=== PATIENT | female | born 1950 | race Caucasian/White ===

== ENCOUNTER 2021-02-24 19:23 | Inpatient (IN) ==
[2021-02-24] MEDS ORDERED: DEXTROSE 50% 25 GM/50 ML SYRINGE IV ONE (20:18)
[2021-02-24] MEDS ORDERED: ALBUTEROL/IPRATROPIUM 3 ML NEB RESP TX STA (20:30)
[2021-02-24] MEDS ORDERED: NALOXONE 0.4 MG/ML VIAL IV STA (20:39)
[2021-02-24] MEDS ORDERED: cefTRIAXone 1,000 MG in SODIUM CHLORIDE 0.9% 100 ML IV STA (20:39)
[2021-02-24 20:56] LABS: ABG Base Excess -20.1 MMOL/L (-2.5-2.5); ABG HCO3 9.8 MMOL/L (20-26); ABG Oxygen Saturation 97.2 % (95-100); ABG PCO2 26.3 MM HG (35-48)
[2021-02-24 21:00] LABS: ABG PH 7.114 (7.35-7.45)
[2021-02-24] MEDS ORDERED: SODIUM BICARBONATE 50 MEQ/50 ML VIAL IV STA (21:03)
[2021-02-24] MEDS ORDERED: SODIUM BICARBONATE 50 MEQ/50 ML VIAL IV ONE (21:04)
[2021-02-24] MEDS ORDERED: NOREPINEPHRINE 4 MG/4 ML VIAL IV ONE (21:11)
[2021-02-24] MEDS ORDERED: PIPERACILLIN/TAZOBACTAM 3,375 MG in SODIUM CHLORIDE 0.9% 100 ML IV STA (21:12)
[2021-02-24] MEDS: NOREPINEPHRINE 8 MG in SODIUM CHLORIDE 0.9% 242 ML IV PRN (21:20)
[2021-02-24 21:25] LABS: Basophils % 0.1 % (0.0-0.8); Hematocrit 37.2 VOL% (35.7-47.0)
[2021-02-24 21:47] LABS: Immature Granulocytes % 1.2 %; Immature Granulocytes Absolute 0.26 #; Lactic Acid 12.9 MMOL/L (0.4-2.0); Lymphocytes # 0.9 10*3/uL (1.4-4.0); Lymphocytes % 4.3 % (21.3-54.2); Mean Corpuscular HGB Conc 28.8 GM/DL (32-36); Mean Corpuscular Volume 104.2 FL (87-102); Mean Platelet Volume 11.1 FL (9.6-12.0); Monocytes % 9.6 % (1.7-12.7); NRBC # 0.07 10*3/uL; Neutrophils % 84.8 % (38.7-73.9); Platelet Count 254 T/CUMM (130-400); Red Blood Count 3.57 MC/CUMM (3.8-5.5); Red Cell Distribution Width 16.6 % (9.3-17.3); White Blood Count 21.6 T/CUMM (4-12)
[2021-02-24 21:50] LABS: Hemoglobin 10.7 GM/DL (12.0-16.0)
[2021-02-24 21:55] LABS: Band Neutrophils 1 % (0-10); Lymphocytes 5 % (20-55); Metamyelocytes 1 %; Platelet Estimate Adequate; Segmented Neutrophils 82 % (50-85); Total Cells Counted 100
[2021-02-24 22:05] LABS: Alanine Aminotransferase 781 U/L (13-56); Alkaline Phosphatase 159 U/L (45-117); Aspartate Amino Transferase 2705 U/L (0-37); Blood Urea Nitrogen 41 MG/DL (7-18); CKMB % 6.6 %; Calcium 8.8 MG/DL (8.5-10.1); Carbon Dioxide 13 MMOL/L (21-32); Estimated Glom Filtration Rate 20 ML/MIN; Glucose 170 MG/DL (74-106); Osmolality,Calculated 279.4 MOS/KG (273-304); Potassium 5.7 MMOL/L (3.5-5.1); Sodium 133 MMOL/L (136-145); Total Protein 7.6 G/DL (6.4-8.2)
[2021-02-25] MEDS ORDERED: SODIUM CHLORIDE 0.9% 1,000 ML IV STA ×2 (00:01→02:48)
[2021-02-25 00:55] LABS: Bacteria,Urine Occasional /HPF (Few); Bilirubin,Urine Negative (Negative); Blood, Urine Negative (Negative); Glucose,Urine (UA) Negative (Negative); Granular Casts,Urine 1 /LPF (0-1); Hyaline Casts,Urine 59 /LPF (0-3); Ketones,Urine 5 mg/dL (Negative); Mucus,Urine Occasional /LPF (Occasional); Nitrite,Urine Negative (Negative); Protein,Urine 100 MG/DL; RBC,Urine 4 /HPF (0-4); Squamous Epithelial Cell,Urine Few /HPF (0-10); Urine Appearance CLOUDY (Clear); Urine Color Amber (Yellow)
[2021-02-25 01:06] LABS: Barbiturates Screen,Urine Negative (Negative); Benzodiazepines Screen,Urine Negative (Negative); Cannabinoid Screen,Urine Negative (Negative); Opiate Screen,Urine Positive (Negative); Phencyclidine Screen,Urine Negative (Negative)
[2021-02-25] MEDS ORDERED: LACTATED RINGERS 500 ML IV ONE ×2 (02:51→14:41)
[2021-02-25] MEDS ORDERED: MORPHINE 2 MG/1 ML SYRINGE IV PRN (03:03)
[2021-02-25] MEDS ORDERED: ALBUTEROL 2.5 MG/3 ML NEB RESP TX PRN (03:03)
[2021-02-25] MEDS ORDERED: ONDANSETRON 4 MG/2 ML VIAL IV PRN (03:03)
[2021-02-25] MEDS ORDERED: ACETAMINOPHEN 325 MG TABLET PO PRN (03:03)
[2021-02-25] MEDS ORDERED: DEXTROSE 50% 25 GM/50 ML SYRINGE IV ONE (03:04)
[2021-02-25 03:26] LABS: ABG HCO3 9.3 MMOL/L (20-26); ABG Oxygen Saturation 96.5 % (95-100); ABG PCO2 29.1 MM HG (35-48)
[2021-02-25 03:27] LABS: Basophils % 0.1 % (0.0-0.8); Hematocrit 38.2 VOL% (35.7-47.0); Immature Granulocytes % 1.3 %; Immature Granulocytes Absolute 0.35 #; Lymphocytes # 0.9 10*3/uL (1.4-4.0); Lymphocytes % 3.3 % (21.3-54.2); Mean Corpuscular Volume 105.5 FL (87-102); Mean Platelet Volume 10.8 FL (9.6-12.0); Monocytes % 9.2 % (1.7-12.7); NRBC # 0.11 10*3/uL; Neutrophils % 86.1 % (38.7-73.9); Platelet Count 240 T/CUMM (130-400); Red Blood Count 3.62 MC/CUMM (3.8-5.5); Red Cell Distribution Width 16.9 % (9.3-17.3); White Blood Count 26.1 T/CUMM (4-12)
[2021-02-25 03:28] LABS: ABG PH 7.067 (7.35-7.45)
[2021-02-25 03:30] LABS: Hemoglobin 10.7 GM/DL (12.0-16.0)
[2021-02-25] MEDS ORDERED: DEXTROSE 5% NACL 0.45% 1,000 ML IV SCH (03:30)
[2021-02-25 03:39] LABS: INR 3.1; PT Patient Result 31.9 SECS (10.5-12.0)
[2021-02-25 03:49] LABS: Anisocytosis 2+; Burr Cells Few; Lymphocytes 4 % (20-55); Platelet Estimate Adequate; Segmented Neutrophils 89 % (50-85); Total Cells Counted 100
[2021-02-25 03:50] LABS: Elliptocytes Few
[2021-02-25] MEDS ORDERED: SODIUM BICARBONATE 50 MEQ/50 ML VIAL IV STA (03:55)
[2021-02-25] MEDS ORDERED: SODIUM BICARB INJ 100 MEQ in DEXTROSE 5% NACL 0.45% 1,000 ML IV SCH (04:00)
[2021-02-25 04:01] LABS: Alanine Aminotransferase 920 U/L (13-56); Alkaline Phosphatase 161 U/L (45-117); Aspartate Amino Transferase 3299 U/L (0-37); Blood Urea Nitrogen 40 MG/DL (7-18); Calcium 8.8 MG/DL (8.5-10.1); Carbon Dioxide 11 MMOL/L (21-32); Estimated Glom Filtration Rate 19 ML/MIN; Glucose 67 MG/DL (74-106); Osmolality,Calculated 271.5 MOS/KG (273-304); Potassium 5.5 MMOL/L (3.5-5.1); Sodium 132 MMOL/L (136-145); Total Protein 7.9 G/DL (6.4-8.2)
[2021-02-25] MEDS ORDERED: DEXTROSE 50% 25 GM/50 ML VIAL IV STA (04:27)
[2021-02-25] MEDS: NOREPINEPHRINE 8 MG in SODIUM CHLORIDE 0.9% 242 ML IV PRN (04:50)
[2021-02-25 05:04] VITALS: BP 124/78
[2021-02-25] MEDS ORDERED: VANCOMYCIN INJ 1,500 MG in SODIUM CHLORIDE 0.9% 500 ML IV PRN (05:44)
[2021-02-25] MEDS: DEXTROSE 50% 25 GM/50 ML VIAL IV PRN ×2 (05:47→19:43)
[2021-02-25] MEDS ORDERED: VANCOMYCIN INJ 1,000 MG in SODIUM CHLORIDE 0.9% 250 ML IV SCH (06:00)
[2021-02-25] MEDS ORDERED: GLUCAGON 1 MG VIAL IM PRN (06:26)
[2021-02-25] MEDS ORDERED: VANCOMYCIN INJ 1,500 MG in SODIUM CHLORIDE 0.9% 500 ML IV ONE (06:30)
[2021-02-25] MEDS: HEPARIN DRIP 25,000 UNITS/500 ML PREMIX IV SCH ×2 (07:05→22:10)
[2021-02-25] MEDS: HYDROCORTISONE 100 MG VIAL IV SCH ×3 (07:40→19:13)
[2021-02-25 07:57] LABS: ABG HCO3 9.4 MMOL/L (20-26); ABG Oxygen Saturation 96.5 % (95-100); ABG PCO2 31.2 MM HG (35-48); ABG TCO2 10.4 MMOL/L (23-27)
[2021-02-25 08:01] LABS: ABG PH 7.099 (7.35-7.45)
[2021-02-25] MEDS ORDERED: SODIUM BICARBONATE 50 MEQ/50 ML VIAL IV ONE ×2 (08:04→14:35)
[2021-02-25] MEDS: ALBUTEROL 2.5 MG/3 ML NEB RESP TX SCH ×3 (08:06→19:00)
[2021-02-25] MEDS ORDERED: PANTOPRAZOLE 40 MG VIAL IV SCH (09:00)
[2021-02-25] MEDS ORDERED: ENOXAPARIN 30 MG/0.3 ML SYRINGE SUBCUT SCH (09:00)
[2021-02-25] MEDS: NOREPINEPHRINE 16 MG in SODIUM CHLORIDE 0.9% 234 ML IV PRN ×4 (09:01→22:11)
[2021-02-25] MEDS: PIPERACILLIN/TAZOBACTAM 3,375 MG in SODIUM CHLORIDE 0.9% 100 ML IV SCH ×2 (09:37→21:22)
[2021-02-25 13:57] LABS: ABG Base Excess -17.5 MMOL/L (-2.5-2.5); ABG HCO3 11.3 MMOL/L (20-26); ABG Oxygen Saturation 93.2 % (95-100); ABG PCO2 31.7 MM HG (35-48); ABG PO2 86.1 MM HG (80-95); ABG TCO2 10.2 MMOL/L (23-27)
[2021-02-25 14:03] LABS: ABG PH 7.136 (7.35-7.45)
[2021-02-25] MEDS ORDERED: DIGOXIN 0.5 MG/2 ML AMP IV ONE ×2 (14:35→15:50)
[2021-02-25 16:46] LABS: ABG Base Excess -17.6 MMOL/L (-2.5-2.5); ABG HCO3 11.2 MMOL/L (20-26); ABG Oxygen Saturation 96.8 % (95-100); ABG PCO2 33.1 MM HG (35-48); ABG TCO2 10.4 MMOL/L (23-27)
[2021-02-25 16:49] LABS: ABG PH 7.123 (7.35-7.45)
[2021-02-25] MEDS: SODIUM BICARB INJ 150 MEQ in DEXTROSE 5% 1,000 ML IV SCH (16:54)
[2021-02-25] MEDS ORDERED: MIDAZOLAM 2 MG/2 ML VIAL IV ONE (17:02)
[2021-02-25] MEDS ORDERED: ALPRAZolam 0.25 MG TABLET PO PRN (17:03)
[2021-02-25] MEDS ORDERED: ETOMIDATE 20 MG/10 ML VIAL IV ONE ×2 (17:28→17:44)
[2021-02-25] MEDS ORDERED: SUCCINYLCHOLINE 200 MG/10 ML VIAL ONE (17:29)
[2021-02-25] MEDS ORDERED: SUCCINYLCHOLINE 200 MG/10 ML VIAL IV ONE (17:44)
[2021-02-25] MEDS ORDERED: MIDAZOLAM 100 MG in SODIUM CHLORIDE 0.9% 80 ML IV PRN (17:44)
[2021-02-25 18:57] LABS: ABG Base Excess -16.4 MMOL/L (-2.5-2.5); ABG PCO2 37.5 MM HG (35-48); ABG TCO2 11.6 MMOL/L (23-27)
[2021-02-25 19:03] LABS: ABG PH 7.121 (7.35-7.45)
[2021-02-25] MEDS ORDERED: NOREPINEPHRINE 4 MG/4 ML VIAL IV ONE (21:52)
[2021-02-26] MEDS: HYDROCORTISONE 100 MG VIAL IV SCH (00:18)
[2021-02-26] MEDS: NOREPINEPHRINE 16 MG in SODIUM CHLORIDE 0.9% 234 ML IV PRN ×2 (00:52→05:46)
[2021-02-26] MEDS: ALBUTEROL 2.5 MG/3 ML NEB RESP TX SCH (01:42)
[2021-02-26 03:42] LABS: ABG Base Excess -10.9 MMOL/L (-2.5-2.5); ABG HCO3 15.8 MMOL/L (20-26); ABG PH 7.255 (7.35-7.45); ABG TCO2 14.5 MMOL/L (23-27)
[2021-02-26 04:00] LABS: Basophils # 0.1 10*3/uL (0.0-0.2); Basophils % 0.2 % (0.0-0.8); Hematocrit 32.1 VOL% (35.7-47.0); Hemoglobin 9.5 GM/DL (12.0-16.0); Immature Granulocytes % 4.1 %; Lymphocytes # 0.4 10*3/uL (1.4-4.0); Lymphocytes % 1.1 % (21.3-54.2); Mean Corpuscular HGB Conc 29.6 GM/DL (32-36); Mean Corpuscular Volume 102.9 FL (87-102); Mean Platelet Volume 11.3 FL (9.6-12.0); Monocytes % 7.1 % (1.7-12.7); Neutrophils % 87.5 % (38.7-73.9); Platelet Count 212 T/CUMM (130-400); Red Blood Count 3.12 MC/CUMM (3.8-5.5); Red Cell Distribution Width 16.9 % (9.3-17.3); White Blood Count 39.4 T/CUMM (4-12)
[2021-02-26 04:24] LABS: Albumin 2.6 G/DL (3.4-5.0); Bilirubin,Total 3.2 MG/DL (0.20-1.00); Calcium 7.2 MG/DL (8.5-10.1); Osmolality,Calculated 280.1 MOS/KG (273-304); Potassium 5.3 MMOL/L (3.5-5.1); Total Protein 6.9 G/DL (6.4-8.2)
[2021-02-26] MEDS: SODIUM BICARB INJ 150 MEQ in DEXTROSE 5% 1,000 ML IV SCH ×2 (04:25→06:38)
[2021-02-26] MEDS ORDERED: PHENYLEPHRINE INJ 160 MG in SODIUM CHLORIDE 0.9% 234 ML IV PRN (04:28)
[2021-02-26 04:42] LABS: Band Neutrophils 8 % (0-10); Hypochromasia Slight; Lymphocytes 3 % (20-55); Nucleated Red Blood Cells 2 (0-5); Platelet Estimate Normal; Segmented Neutrophils 84 % (50-85); Total Cells Counted 100
[2021-02-26] MEDS ORDERED: SODIUM CHLORIDE 0.9% 1,000 ML IV ONE (05:37)
[2021-02-26] MEDS ORDERED: SODIUM BICARBONATE 50 MEQ/50 ML VIAL IV ONE ×3 (05:48→06:55)
[2021-02-26] MEDS ORDERED: SODIUM BICARBONATE 50 MEQ/50 ML SYRINGE IV ONE ×3 (05:48→06:36)
[2021-02-26] MEDS: HEPARIN DRIP 25,000 UNITS/500 ML PREMIX IV SCH (06:37)
[2021-02-26] MEDS ORDERED: MORPHINE 2 MG/1 ML SYRINGE IV PRN (07:27)
[2021-02-26] MEDS ORDERED: LORazepam 2 MG/1 ML VIAL IV PRN (07:27)
== END 2021-02-26 07:51 | disposition expired | DRG 871 ==
LOC: EDUNIT# → N.ED 19:23 → N.EDINP 02-25 03:03 → N.CC 02-25 04:45
PROVIDERS: ADMIT Internal Medicine; ATTEND Internal Medicine